=== PATIENT | male | born 1995 | race Caucasian/White ===

== ENCOUNTER 2024-04-11 13:55 | Emergency (ER) | payer OTHER, SELFPAY ==
[2024-04-11 14:04] VITALS: BP 140/85; PULSE 81; RESP 18; TEMP 36.7; O2SAT 100
[2024-04-11] MEDS: DOXYCYCLINE HYCLATE 100 MG TABLET PO (14:49)
[2024-04-11] MEDS: TETANUS,DIPHTHERIA,AC PERTUSSIS ADULT (0.5 ML) BOOSTRIX IM (14:49)
--- NOTE | 2024-04-11 15:32 | ED.WOUNDLAC ---
HPI - Wound/Laceration General Chief Complaint: Wound/Laceration Stated Complaint: lac to left hand Time Seen by Provider: 04/11/24 14:31 History of Present Illness HPI narrative: Patient was checking oysters when he accidentally cut his left hand, to the webbing between his thumb and forefinger. No medical issues, not immunocompromised Review of Systems Review of Systems: All systems reviewed & are unremarkable except as noted in HPI and below Exam Narrative: EXAMINATION OF ORGAN SYSTEMS/BODY AREAS: Constitutional: Vital signs per nursing GENERAL:[No acute distress, non-toxic appearing.] HEAD: Normal with no signs of head trauma. EYES: EOMI, conjunctiva normal ENT: Hearing grossly intact LUNGS: Nonlabored breathing. HEART: [Regular rate and rhythm] ABD: [Soft], [nontender to palpation] EXT: Normal range of motion, able to abduct and abduct and oppose thumb SKIN: 0.5cm lac between thumb/forefinger NEURO: [Alert and oriented x 3. No gross focal sensory or strength deficits.] PSYCH: Normal affect Course Vital Signs Vital signs: Vital Signs Temperature 98.1 F 04/11/24 14:04 Pulse Rate 81 04/11/24 14:04 Respiratory Rate 18 04/11/24 14:04 Blood Pressure 140/85 04/11/24 14:04 Pulse Oximetry 100 04/11/24 14:04 Oxygen Delivery Room Air 04/11/24 14:04 Temperature 98.1 F 04/11/24 14:04 Pulse Rate 81 04/11/24 14:04 Respiratory Rate 18 04/11/24 14:04 Blood Pressure 140/85 04/11/24 14:04 Pulse Oximetry 100 04/11/24 14:04 Oxygen Delivery Room Air 04/11/24 14:04 Procedures Laceration Laceration 1: Date: 04/11/24 Time: 15:00 Site: hand Side (If applicable): left Size (cm): 0.5 Description: linear Depth: simple, single layer Local Anesthetic: lidocaine 1% Amount of anesthesia used (mL): 1 Pre-repair: wound explored, irrigated, irrigated extensively and deep structures intact ====== Skin Level ====== Skin layer closed with: vicryl Size (cm): 4-0 Number of sutures: 1 Technique: simple, interrupted ====== Subcutaneous Layer ====== ====== Muscle Layer ====== ====== Tendon Layer ====== MDM - Wound/Laceration MDM Narrative Medical decision making narrative: 28-year-old male presents after hand injury while shucking oysters, given the marine exposure, I will put him on doxycycline for prophylaxis. Wound is irrigated under tap for 5 minutes; then I irrigated with higher pressure with sterile water bottle 400cc total. Wound appears clean. Normal ROM and strength. Closed wound (see procedure note) and stable for discharge. Discharge Plan Discharge Clinical Impression: Laceration Patient Disposition: Home, Self-Care Condition: Stable Instructions: Antibiotic Form, Laceration (ED) Additional Instructions: Please take the antibiotics as prescribed; come back to the ER immediately if you notice any redness or signs of infection. Prescriptions: New doxycycline hyclate 100 mg capsule 100 mg PO Q12H 7 Days Qty: 14 0RF Follow-up/Referrals: PHYSICIAN NOT ON STAFF,NONSTAFF [Non-Staff] - Tremaine Melvin MD [Physician] - 3 Days Stand Alone Forms: Work/School Release IP
== END 2024-04-11 15:20 | disposition home or self-care (01) ==
PROVIDERS: Emergency Provider Emergency Medicine
DX: S61.412A Laceration without foreign body of left hand, initial encounter (principal); Z23 Encounter for immunization; W26.9XXA Contact with unspecified sharp object(s), initial encounter; Y93.G1 Activity, food preparation and clean up
CPT/HCPCS: 12001; 90471; 90715; 99283; A9270